=== PATIENT | female | born 1995 ===

== ENCOUNTER → 2018-01-28 | Emergency (ER) | payer OTHER ==
[~2018-01-28] VITALS: Ht 160 cm; Wt 72.6 kg
== END | disposition left against medical advice (07) ==
LOC: ER 11:42
DX: M79.632 Pain in left forearm (principal); R20.0 Anesthesia of skin; T85.848A Pain due to other internal prosthetic devices, implants and grafts, initial encounter; Z45.89 Encounter for adjustment and management of other implanted devices; Y82.8 Other medical devices associated with adverse incidents; Y92.89 Other specified places as the place of occurrence of the external cause